=== PATIENT | male | born 1940 | race Caucasian/White ===

== ENCOUNTER 2017-10-18 04:56 | Inpatient (IN) | payer BC, OTHER ==
[2017-09-30 08:09] VITALS: BMI 29.0
--- NOTE | 2017-09-30 08:36 | PAT Medication Instructions ---
Service Date Sep 30, 2017. Current Home Medication List Amlodipine (Norvasc), 10 MG PO HS Aspirin (Aspirin Ec), 81 MG PO QAM Atenolol (Tenormin), 50 MG PO QAM Atorvastatin (Lipitor), 20 MG PO QAM Lisinopril (Zestril), 40 MG PO QAM Metformin Hcl (Glucophage Er), 2 TAB PO QAM Multivitamin (Multivitamin), 1 TAB PO QAM Ranitidine Hcl (Zantac), 150 MG PO LUNCH & HS Medication Instructions For Your Scheduled Surgery - Hold the following medications 48 hours prior to surgery: Metformin Hcl (Glucophage Er), 2 TAB PO QAM - Hold the following medications the morning of surgery: Multivitamin (Multivitamin), 1 TAB PO QAM Lisinopril (Zestril), 40 MG PO QAM - Take the following medications the morning of surgery with a sip of water: Aspirin (Aspirin Ec), 81 MG PO QAM Atenolol (Tenormin), 50 MG PO QAM Atorvastatin (Lipitor), 20 MG PO QAM - Take the following medications as scheduled the night before surgery: Ranitidine Hcl (Zantac), 150 MG PO LUNCH & HS Amlodipine (Norvasc), 10 MG PO HS If you have any questions please call us at [phone] or [phone] or [phone]
--- NOTE | 2017-09-30 09:12 | DIAGNOSTIC IMAGING REPORT ---
TWO VIEW CHEST CLINICAL HISTORY: Preoperative examination. FINDINGS: PA and lateral chest radiographs are obtained. No prior studies are available for comparison at the time of dictation. The cardiomediastinal silhouette is unremarkable. There are low lung volumes and bibasilar atelectasis. The lungs and pleural spaces are otherwise clear. There is no pneumothorax. The skeletal structures are osteopenic. Degenerative change is noted throughout the thoracic spine. IMPRESSION: Low lung volumes with no active disease in the chest. Electronically signed by: Patel Hager M.D. 09/30/2017 9:11 AM Dictated Date/Time: 09/30/2017 9:10 AM
[2017-09-30 10:37] LABS: BASO % 0.4 %; BASO ABS # 0.02 K/uL (0-0.2); COMPLETE YES; EOS % 2.2 %; HEMATOCRIT 43.2 % (42-52); IG% 0.2 %; LYMPH % 30.6 %; MEAN CELL VOLUME 90.8 fL (80-100); MEAN CORPUSCULAR HEMOGLOBIN 32.1 pg (25-34); MEAN CORPUSCULAR HGB CONC 35.4 g/dl (32-36); MEAN PLATELET VOLUME 11.8 fL (7.4-10.4); MONO % 8.5 %; NEUT % 58.1 %; PLATELET COUNT 146 K/uL (130-400); RED BLOOD COUNT 4.76 M/uL (4.7-6.1); WHITE BLOOD COUNT 4.57 K/uL (4.8-10.8)
[2017-09-30 10:44] LABS: PROTHROMBIN TIME (PATIENT) 10.7 SECONDS (9.0-12.0)
[2017-09-30 10:55] LABS: ESTIMATED AVERAGE GLUCOSE 114 mg/dl; HA1C FLAG Normal (Normal)
[2017-09-30 11:17] LABS: CALCIUM 9.5 mg/dl (8.5-10.1); POTASSIUM 4.5 mmol/L (3.5-5.1)
--- NOTE | 2017-10-12 09:42 | HISTORY & PHYSICAL EXAMINATION ---
DATE OF ADMISSION: 10/18/2017 CHIEF COMPLAINT: Left hip pain. HISTORY OF PRESENT ILLNESS: The patient is a 77-year-old gentleman who presents for treatment of his left hip. He has about a year and half history of left hip pain and discomfort, gradually gotten worse over time. No particular injury. He has taken some Aleve, which take the edge off but that is about it. He describes mostly groin pain. He has been less able to walk due to the pain. He used to walk several miles a day, but cannot do this anymore due to his hip pain. His groin pain, thigh pain and pain to his knee. No numbness. No back problems. He does have nighttime discomfort. PAST MEDICAL HISTORY: 1. Diabetes x1 year. 2. Hypertension. PAST SURGICAL HISTORY: Include knee surgery. ALLERGIES: VIOXX AND PENICILLIN. CURRENT MEDICINES: 1. Metformin 750 mg twice a day. 2. Atenolol 50 mg. 3. Lisinopril once a day. 4. Atorvastatin 20 mg. 5. Ranitidine 300 mg twice a day. 6. Amlodipine 10 mg. 7. Aspirin 81 mg. 8. Centrum Silver. SOCIAL HISTORY: A 77-year-old male. He is . [place]. Does not smoke. FAMILY HISTORY: Negative for heart disease, diabetes, and blood clots. REVIEW OF SYSTEMS: Significant for recent diagnosis of diabetes about a year ago. It has been diet controlled up till then. Denies any chest pain or shortness of breath. No history of DVT or PE. No known bleeding problems. PHYSICAL EXAMINATION: GENERAL: Reveals a pleasant, healthy appearing 77-year-old male. HEENT: Benign. NECK: Supple. No lymphadenopathy. LUNGS: Clear to auscultation. HEART: Regular rate and rhythm. ABDOMEN: Soft, nontender, nondistended. EXTREMITIES: Grossly neurovascularly intact except as follows: Examination of the left hip and leg reveals the patient walks with a bit of a limp. Leg lengths clinically appear pretty equal. He has limited hip motion with pain with internal rotation. This recreates his pain. Negative straight leg raise. No knee effusion. X-RAYS: X-rays of the left hip were reviewed. It shows advanced left hip DJD. He has got complete loss of his superior joint space. ASSESSMENT: A 77-year-old male with advanced left hip degenerative joint disease. He has failed conservative treatment and would like to have his left hip replaced. PLAN: We will take him to the operating room and do a left total hip replacement. The risks and benefits of this procedure were explained to the patient including but not limited to DVT, PE, , infection, neurological injury, vascular injury, bleeding problem, pain, limited range of motion, stiffness, failure to relieve the symptoms, incomplete relief of symptoms, persistent pain, dislocation, fracture, etc. The patient understands and desires to proceed. Informed consent was obtained. The patient is hoping to be discharged to home using an [facility] home health program. He does have a fairly wide open canal with a bit of a bow and will have to be careful in placing the stem and may actually need to cement the stem if we cannot get an uncemented stem to work. He is quite concerned about pain medicines. Will try and manage his pain with Tylenol, Toradol and some tramadol. We did talk to him about holding his metformin 2 days preoperatively and the lisinopril the morning of surgery. He should take the atenolol the morning of surgery. BENNETT
[~2017-10-18] VITALS: Ht 172.7 cm; Wt 87.7 kg
[~2017-10-18 04:56] MED LIST: AMLO-114 PO; ASPI81TA28 PO; ATEN50TA8 PO; ATOR-22 PO; LISI40TA PO; METF750T PO; MULT-506 PO; RANI150T3 PO
[2017-10-18 05:43] VITALS: BP 164/85; PULSE 58; TEMP 36.7; O2SAT 94; Ht 172.7 cm; Wt 87.7 kg
[2017-10-18] MEDS ORDERED: LACTATED RINGER'S 1000ML 500 ML IV ONE (06:00)
[2017-10-18] MEDS ORDERED: TRANEXAMIC ACID INJ 1,000 MG in SYRINGE 0 ML IV SCH (06:00)
[2017-10-18] MEDS ORDERED: SCOPOLAMINE 1.5 MG TDSY TD SCH (06:00)
[2017-10-18] MEDS ORDERED: LACTATED RINGER'S 1000ML IV SCH (06:00)
[2017-10-18] MEDS ORDERED: LACTATED RINGER'S 1000ML 1,000 ML IV SCH (06:00)
[2017-10-18] MEDS ORDERED: CEFAZOLIN 2000MG IV PUSH 10 ML IV SCH (06:00)
[2017-10-18] MEDS ORDERED: TRAMADOL HCL 50 MG TAB PO SCH (06:00)
[2017-10-18] MEDS ORDERED: ACETAMINOPHEN 500 MG TAB PO SCH (06:00)
[2017-10-18] MEDS ORDERED: METOCLOPRAMIDE HCL 10 MG TAB PO SCH (06:00)
[2017-10-18] MEDS ORDERED: GABAPENTIN 300 MG CAP PO SCH (06:00)
[2017-10-18] MEDS ORDERED: FAMOTIDINE 20 MG TAB PO SCH (06:00)
[2017-10-18] MEDS ORDERED: BUPIVACAINE 0.5 % 5 MG/1 ML PF 10ML VIAL ONE (06:32)
[2017-10-18] MEDS ORDERED: BUPIVACAINE/EPINEPHRINE 0.5% MPF 1:200,000 30 ML VIAL ONE (06:34)
[2017-10-18] MEDS ORDERED: BACITRACIN 50000 UNIT VIAL ONE (06:34)
--- NOTE | 2017-10-18 06:38 | History & Physical Bridge Note ---
H&P Re-Evaluation Bridge Note: I have examined the patient, reviewed the History & Physical and in the interval since the performance of the History & Physical I have noted the following changes of clinical significance: No changes noted
[2017-10-18] MEDS ORDERED: MIDAZOLAM HCL 1 MG/ML 2ML VIAL ONE (06:39)
[2017-10-18] MEDS ORDERED: LIDOCAINE HCL 2% 2 ML VIAL (20MG/ML) ONE (07:43)
[2017-10-18] MEDS ORDERED: PROPOFOL IV EMULSION 10 MG/ML 20 ML VIAL IV ONE (07:43)
[2017-10-18] MEDS ORDERED: NALOXONE HCL INJ 1 MG in SODIUM CHLORIDE 0.9% 1000ML 1,000 ML IV PRN ×4 (07:56)
[2017-10-18] MEDS ORDERED: NALOXONE HCL INJ 0.08 MG in SYRINGE 1.8 ML IV PRN (07:56)
[2017-10-18] MEDS ORDERED: LACTATED RINGER'S 1000ML 500 ML IV PRN (07:56)
[2017-10-18] MEDS ORDERED: SODIUM CHLORIDE 0.9% 1000ML 1,000 ML IV PRN (07:56)
[2017-10-18] MEDS ORDERED: NALOXONE HCL 0.4 MG/1 ML VIAL/CARP IV PRN (08:00)
[2017-10-18] MEDS ORDERED: PROMETHAZINE HCL INJ 25 MG in SODIUM CHLORIDE 0.9% 50ML 50 ML IV PRN (08:00)
[2017-10-18] MEDS ORDERED: MoRPHine SULFATE PF 1 MG/ML 10 ML AMP/VIAL EPI PRN (08:00)
[2017-10-18] MEDS ORDERED: ONDANSETRON INJ 2 MG/ML 2 ML VIAL IV PRN ×2 (08:00→08:30)
[2017-10-18] MEDS ORDERED: EpHEDrine SULFATE INJ 50 MG/ML AMP IV PRN (08:00)
[2017-10-18] MEDS ORDERED: NALBUPHINE HCL INJ 10 MG/ML AMP IV PRN (08:00)
[2017-10-18] MEDS ORDERED: NO NARCOTICS OR SEDATIVES SCH (08:00)
--- NOTE | 2017-10-18 08:25 | [facility] Post Operative Brief Note ---
Immediate Operative Summary Operative Date Oct 18, 2017. Pre-Operative Diagnosis Advanced Left Hip Degenerative Joint Disease Post-Operative Diagnosis Advanced Left Hip Degenerative Joint Disease Procedure(s) Performed Left Total Hip Arthroplasty--Uncemented Surgeon Dr. Elizabeth Cattle Care Worker Surgeon(s) GUSTAVO Dey Estimated Blood Loss 200 ml Findings Left Hip DJD Specimens A. Left Femoral Head Drains None Anesthesia Spinal Complication(s) None Disposition Recovery Room / PACU
[2017-10-18] MEDS ORDERED: MAGNESIUM HYDROXIDE SUSP 30 ML UDC PO PRN (08:30)
[2017-10-18] MEDS ORDERED: ALUMINUM/MAGNESIUM/SIMETH (MAALOX MAX) 30 ML UDC PO PRN (08:30)
[2017-10-18] MEDS ORDERED: SILVER SULFADIAZINE 1% CR 50 GM JAR EXT PRN (08:30)
[2017-10-18] MEDS ORDERED: METOCLOPRAMIDE HCL INJ 5 MG/ML 2 ML VIAL IV PRN (08:30)
[2017-10-18] MEDS ORDERED: TAMSULOSIN HCL 0.4 MG CAP PO PRN (08:30)
[2017-10-18] MEDS ORDERED: BISACODYL 10 MG SUPP PR PRN (08:30)
[2017-10-18] MEDS ORDERED: MULTIVITAMIN TAB PO SCH (09:00)
--- NOTE | 2017-10-18 09:14 | OPERATIVE REPORT ---
DATE OF OPERATION: 10/18/2017 SURGEON: Dr. Syd Elizabeth. VOCATIONAL EDUCATION PROFESSIONAL: GUSTAVO Lawson PREOPERATIVE DIAGNOSIS: Left hip degenerative joint disease. POSTOPERATIVE DIAGNOSIS: Same. PROCEDURE PERFORMED: Left ceramic on highly cross-linked polyethylene uncemented total hip arthroplasty. COMPLICATIONS: None. ESTIMATED BLOOD LOSS: 200 mL FLUID REPLACEMENT: 1200 mL crystalloid fluid replacement. ANESTHESIA: Spinal. DRAINS: None. SPECIMENS: Left femoral head sent for pathology. OPERATIVE INDICATIONS: The patient is a 77-year-old gentleman who has had a several-year history of increasing left hip pain and discomfort, gotten significantly worse over the past year. He has been unable to walk and exercise like he would like due to this hip pain. He failed conservative treatment. X-rays reveal advanced left hip DJD. The patient elected to proceed with operative treatment. OPERATIVE FINDINGS: Operative findings revealed advanced left hip DJD. Extensive grade 4 changes of the femoral head and acetabulum. Moderate-sized joint effusion. Some moderate synovitis. Fairly minimal osteophyte formation. OPERATIVE IMPLANTS: Operative implants consist of: 1. Biomet G7 size 56 mm acetabular shell. 2. A 6.5 cancellous acetabular screws, one of 35 mm in length and one of 25 mm in length. 3. An apex hole eliminator. 4. A highly cross-linked polyethylene liner with a 56 mm outer diameter, 36 mm inner diameter. 5. DePuy Corail size 14 standard offset femoral stem with POWER coating. 6. A +5/36 mm ceramic articular ball. OPERATIVE PROCEDURE: The patient taken to the operating room, identified and placed on the operating table in supine position. All contact areas were appropriately padded. IV antibiotics were provided by anesthesia team. A spinal anesthetic had been implemented in the holding area. Duke catheter was placed in sterile fashion. The patient was then placed in the right lateral decubitus position. An axillary roll was placed. A Stulberg hip positioner was used for positioning. The left hip and leg were then prepped and draped in the usual sterile fashion. A posterolateral approach to the hip was then performed centered over the greater trochanter. Sharp dissection was carried out through the subcutaneous tissues down to the level of the greater trochanter. The IT band and gluteal fascia were incised longitudinally in line with skin incision. The underlying greater trochanteric bursa was excised. The piriformis and external rotators were taken off the posterior aspect of the hip joint. Great care was taken throughout the procedure to protect the sciatic nerve at all times. Posterior capsulotomy was then performed leaving a large flap for later repair. Hip was internally rotated and dislocated. Femoral neck osteotomy cut was made with the final cut about a cm above the lesser trochanter. Femoral head was removed and sent for pathology. The femur was retracted anteriorly. Attention was then drawn to the acetabulum. The acetabular labrum was excised. The pulvinar fat was excised. Sequential reaming of the acetabulum was then performed beginning with a size 43 and progressing up to 55. A 56-mm Biomet G7 acetabular shell was then placed in about 40 degrees of lateral opening and 20 degrees of anteversion. It was fixed with two 6.5 cancellous acetabular screws. A trial liner was placed. Attention was then drawn to the femur. The proximal femur was entered with a [employer] cutter followed by a canal finder. I then broached sequentially with the Corail broaches. We got excellent fit of the size 14. Calcar reamer was used to smoothen off the calcar. We then trialed the hip and +5/36 mm articular ball provided equal leg lengths, appropriate soft tissue tension, and full stability with the hip in extension and full external rotation and flexion to 90 degrees, internal rotation over [address] We elected to place these implants. All trial implants were removed. An apex hole eliminator was placed. A highly cross-linked polyethylene liner was placed. A size 14 standard offset POWER coated Corail stem was then impacted in position. This was a collar device. A +5/36 mm ceramic articular ball was placed. Hip was located and once again found to be stable. Attention was then drawn toward closing. The wound was irrigated with copious amounts of pulsatile lavage solution. I did inject locally with 60 mL of 0.5% Marcaine with epinephrine. The posterior capsule and external rotators were repaired through drill holes in the posterior trochanter with #2 Ti-Cron suture. The IT band and gluteal fascia were then closed with #1 PDS suture in running fashion. The subcutaneous tissues were then closed in 2 layers, the deep layer with #1 Vicryl suture and subcutaneous tissues with 2-0 Dexon suture in a buried interrupted fashion. Skin was closed with skin jose luis. Leg was then cleaned and dried and a sterile dressing of Xeroform, 4 x 4's, sterile ABD pad and foam tape was applied. The patient then transferred to the recovery room in stable condition. The patient tolerated the procedure well with no complications. All needle and sponge counts were correct at the end of the operation. I attest to the content of the Intraoperative Record and any orders documented therein. Any exception s are noted below.
--- NOTE | 2017-10-18 09:21 | DIAGNOSTIC IMAGING REPORT ---
L PELVIS/UNILATERAL HIP 1 VIEW CLINICAL HISTORY: IN PACU - A/P PELVIS and LATERAL HIP INCLUDING ALL OF IMPLANT hip replacement COMPARISON: None. DISCUSSION: Evidence for a total left hip arthroplasty. Good contact between prosthetic and underlying bone. No evidence for acetabular protrusion. Expected soft tissue postoperative change. IMPRESSION: Total left hip arthroplasty aligned anatomically. The above report was generated using voice recognition software. It may contain grammatical, syntax or spelling errors. Electronically signed by: Isac Bradshaw M.D. 10/18/2017 9:20 AM Dictated Date/Time: 10/18/2017 9:19 AM
[2017-10-18] MEDS ORDERED: GLUCOSE 10 TABS/TUBE PO PRN (10:45)
[2017-10-18] MEDS ORDERED: GLUCAGON FOR INJ 1 MG VIAL SQ PRN (10:45)
[2017-10-18] MEDS ORDERED: DEXTROSE 50% 50 ML SYR IV PRN (10:45)
[2017-10-18] MEDS ORDERED: GLUCOSE 40% GEL 15 GM TUBE PO PRN (10:45)
--- NOTE | 2017-10-18 11:52 | Anesthesiology Progress Note ---
Anesthesia Post Op Note Date & Time Oct 18, 2017 at 11:48 Vital Signs Pain Intensity: 0 Vital Signs Past 12 Hours Date Time Temp Pulse Resp B/P (MAP) Pulse Ox O2 Delivery O2 Flow Rate FiO2 10/18/17 10:59 52 15 92 10/18/17 10:59 50 15 10/18/17 10:54 56 12 10/18/17 10:54 52 12 96 10/18/17 10:49 54 13 10/18/17 10:49 52 13 94 10/18/17 10:46 121/78 10/18/17 10:44 51 12 10/18/17 10:44 52 12 95 10/18/17 10:39 57 19 97 10/18/17 10:39 55 19 10/18/17 10:34 49 13 94 10/18/17 10:34 51 13 10/18/17 10:33 58 24 10/18/17 10:33 60 24 94 10/18/17 10:31 115/75 10/18/17 10:28 54 16 10/18/17 10:28 53 16 93 10/18/17 10:23 50 14 10/18/17 10:23 47 14 96 10/18/17 10:21 130/59 10/18/17 10:18 55 24 10/18/17 10:18 55 24 94 10/18/17 10:16 100/84 10/18/17 10:13 56 18 94 10/18/17 10:13 57 18 10/18/17 10:10 110/51 10/18/17 10:10 110/63 10/18/17 10:08 54 15 10/18/17 10:08 53 15 93 10/18/17 10:03 60 19 10/18/17 10:03 60 19 95 10/18/17 10:01 106/70 10/18/17 09:58 50 12 96 10/18/17 09:58 52 12 10/18/17 09:57 56 14 108/59 93 10/18/17 09:57 49 14 10/18/17 09:53 112/75 10/18/17 09:52 39 18 10/18/17 09:52 39 18 97 10/18/17 09:51 78/57 10/18/17 09:47 47 4 10/18/17 09:47 45 4 97 12/8/17 09:46 111/76 8/17 09:42 47 12 95 17 09:42 42 12 17 09:41 113/67 17 09:37 41 16 98 17 09:37 46 16 17 09:36 122/61 8/17 09:32 56 16 94 17 09:32 57 16 17 09:31 107/61 17 09:28 37.2 817 09:27 59 15 112/50 95 17 09:27 51 15 17 09:22 63 14 17 09:22 63 14 93 10/18/17 09:21 63 16 17 09:21 62 16 106/57 92 10/18/17 09:16 50 14 97 10/18/17 09:16 52 14 10/18/17 09:15 117/65 10/18/17 09:11 63 16 10/18/17 09:11 68 16 109/59 94 10/18/17 09:06 57 16 97 10/18/17 09:06 60 16 10/18/17 09:05 119/61 17 09:01 53 13 10/18/17 09:01 57 13 115/62 94 10/18/17 09:00 55 13 10/18/17 09:00 51 13 94 10/18/17 08:56 117/62 10/18/17 08:55 57 16 94 10/18/17 08:55 63 16 10/18/17 08:51 109/76 17 08:50 62 20 96 17 08:50 62 20 17 08:46 119/59 17 08:45 53 13 99 17 08:45 56 13 17 08:44 54 16 17 08:44 50 16 99 17 08:41 120/64 17 08:39 50 13 98 17 08:39 54 13 17 08:36 115/66 17 08:34 64 17 17 08:34 59 17 98 10/18/17 08:32 123/61 10/18/17 08:29 67 18 10/18/17 08:29 67 18 98 10/18/17 08:25 108/60 10/18/17 08:25 107/63 10/18/17 08:24 72 10/18/17 08:24 37.1 66 15 108/60 96 Oxymask 10 10/18/17 08:24 72 94 10/18/17 05:43 36.7 58 18 164/85 94 Room Air Notes Mental Status: alert / awake / arousable, participated in evaluation Pt Amnestic to Procedure: Yes Nausea / Vomiting: adequately controlled Pain: adequately controlled Airway Patency, RR, SpO2: stable & adequate BP & HR: stable & adequate Hydration State: stable & adequate Neuraxial Anesthesia: was administered, sensory block is resolving Anesthetic Complications: no major complications apparent Pt presented w/ baseline EKG first degree av block.Pt went into 2nd degree AV Block in PACU.Dr Taylor called since pt sees PCP w/ Nicole.Pt is H/D stable.Discussed w/Dr Taylor,and he will see pt.Pt is being transferred to telemetry bed.
[2017-10-18 12:16] VITALS: BP 125/66; PULSE 70; TEMP 36.6; O2SAT 97
[2017-10-18] MEDS: SODIUM CHLORIDE 0.9% 1000ML 1,000 ML IV SCH ×2 (12:51→22:11)
[2017-10-18] MEDS: LISINOPRIL 40 MG TAB PO SCH (13:33)
[2017-10-18] MEDS: ACETAMINOPHEN 500 MG TAB PO SCH ×2 (13:33→22:09)
[2017-10-18] MEDS: MULTIVITAMIN TAB PO SCH (13:37)
[2017-10-18] MEDS: RANITIDINE HCL 150 MG TAB PO SCH (13:37)
[2017-10-18 13:39] VITALS: BP 137/69
[2017-10-18] MEDS ORDERED: TRANEXAMIC ACID INJ 1,000 MG in SODIUM CHLORIDE 0.9% 100ML 100 ML IV ONE (14:30)
[2017-10-18] MEDS: KETOROLAC TROMETHAMINE 15 MG/ML VIAL IV. SCH ×2 (14:33→20:56)
[2017-10-18] MEDS: DiphenhydrAMINE HCL 50 MG/ML VIAL IV PRN ×2 (14:38→23:01)
--- NOTE | 2017-10-18 14:56 | CARDIOLOGY CONSULTATION ---
DATE OF CONSULTATION: 10/18/2017 DATE OF CONSULTATION: 10/18/2017 REFERRING PHYSICIAN: Dr. Elizabeth. REASON FOR CONSULTATION: Second degree AV block, Mobitz type 1. HISTORY OF PRESENT ILLNESS: Mr. Frausto a 77-year-old gentleman with history of type 2 diabetes. Presented for elective left-sided hip replacement. Postoperatively, he was noted to develop second-degree AV block, Mobitz type 1 with a ventricular rate of approximately 45 beats per minute. No symptoms or hypotension reported. I was contacted by the anesthesia service for consultation. The patient was seen and examined at the bedside. Resting comfortably. and daughter are present as well. The patient denies history of lightheadedness, dizziness, syncope, near syncope, or bradycardia. Denies personal history of coronary disease, congestive heart failure, rheumatic fever as a child, peripheral vascular disease, or dysrhythmia. In general, he is an active person. Most recently limited by his left hip discomfort. Reports family history of coronary disease in elderly relatives. The patient offers no complaints at this time. REVIEW OF SYSTEMS: The pertinent positives noted above, a comprehensive 10-system review is otherwise negative. PAST MEDICAL HISTORY: 1. Diabetes type 2. 2. Dyslipidemia. 3. Skin neoplasm. 4. Hypertension. PAST SURGICAL HISTORY: Knee surgery. ALLERGIES: VIOXX AND PENICILLIN. CURRENT OUTPATIENT MEDICATIONS: 1. Metformin 750 mg 2 tablets in the morning. 2. Atenolol 50 mg daily. 3. Lipitor 20 mg daily. 4. Lisinopril 40 mg daily. 5. Amlodipine 10 mg daily. 6. Zantac 150 mg twice daily. 7. Aspirin 81 mg daily. SOCIAL HISTORY: Lifelong nonsmoker. He is and lives with his . FAMILY HISTORY: Negative for premature CAD or sudden cardiac . ECG performed under observation in the PACU demonstrates sinus rhythm with a second degree AV block, Mobitz type 1 and possible age indeterminate inferior infarct. Previous ECG performed on 09/30/2017 demonstrated sinus rhythm with possible age indeterminate inferior infarct. LABORATORY DATA: Dated 09/30/2017, white blood cell count 4.57, hemoglobin is 15.3, platelet count is 146. INR is 1.0. Sodium 140, potassium 4, chloride 105, CO2 28, BUN is 14, creatinine is 1.00. Telemetry currently demonstrates sinus rhythm with a first degree AV block and a heart rate of approximately 70-80 beats per minute. PHYSICAL EXAMINATION: VITAL SIGNS: Temperature afebrile, 36.6 degrees centigrade, heart rate 70 beats per minute, respiratory rate 16 breaths per minute, blood pressure 137/69, SaO2 97% on 2 liters. GENERAL: NAD, awake and alert. THROAT: His mucous membranes are moist. No scleral icterus. Conjunctivae pink. NECK: Supple. There is no JVD, no HJR. No carotid bruit. HEART: Regular with a normal S1 and S2. There is no murmur, rub or gallop. LUNGS: Clear. There are no rales, rhonchi or wheeze. ABDOMEN: Soft, nontender. There is no rebound or guarding. Normal bowel sounds. EXTREMITIES: Demonstrate left-sided hip tenderness. There is no edema. NEUROLOGIC: Demonstrates no focal deficit. FINAL IMPRESSION: 1. A 77-year-old male with transient second-degree AV block, Mobitz type 1 noted postoperatively. He has a long first-degree AV block at baseline. The patient has returned to sinus rhythm with first degree AV block and remains asymptomatic. 2. Diabetes type 2. 3. Hypertension -- controlled. 4. Dyslipidemia. 5. Postoperative day 0 left hip replacement. PLAN AND RECOMMENDATIONS: I will repeat baseline metabolic panel, magnesium level, as well as assess TSH at this time. A baseline resting 2D transthoracic echo will also be performed given evidence of possible age indeterminate inferior infarct on ECG. We will continue to monitor telemetry overnight. If there is presence of nocturnal second degree AV block during sleep consider evaluation for obstructive sleep apnea. Atenolol will be placed on hold. I recommend avoid AV brady blocking agents at this time. Further recommendations pending clinical course, review of testing, and response to medication change.
[2017-10-18 15:01] LABS: BUN/CREATININE RATIO 13.4 (10-20); CALCIUM 8.2 mg/dl (8.5-10.1); CREATININE 1.08 mg/dl (0.60-1.40); MAGNESIUM 1.9 mg/dl (1.8-2.4); POTASSIUM 3.5 mmol/L (3.5-5.1)
[2017-10-18 15:12] LABS: THYROID STIMULATING HORMONE 5.73 uIu/ml (0.300-4.500)
[2017-10-18 15:25] LABS: LYME DISEASE AB IGG NEG (NEG)
[2017-10-18 15:26] LABS: LYME DISEASE AB IGM NEG (NEG)
[2017-10-18] MEDS: CEFAZOLIN IV 2,000 MG in SYRINGE 0 ML IV SCH ×2 (16:06→23:01)
[2017-10-18] MEDS: CHECK SCOPOLAMINE PATCH PLACEMENT SCH (16:07)
[2017-10-18 16:14] VITALS: BP 121/61; PULSE 66; TEMP 37; O2SAT 92
[2017-10-18] MEDS: INSULIN HUMAN REGULAR SC SCH ×2 (16:15→22:08)
[2017-10-18] MEDS: FERROUS GLUCONATE 324 MG TAB PO SCH (16:45)
--- NOTE | 2017-10-18 17:01 | ECHOCARDIOGRAM REPORT ---
*NOTICE TO RECEIVING [employer] This information is strictly Confidential and protected under [place] law. [place] law prohibits you from making any further disclosure of this information unless further disclosure is expressly permitted by the written consent of the person to whom it pertains or is authorized by law. A general authorization for the release of medical or other information is not sufficient for this purpose. Hospital accepts no responsibility if the information is made available to any other person, INCLUDING THE PATIENT. Interpretation Summary * Name: ERICA LANGSTON Study Date: 10/18/2017 03:12 PM BP: 137/69 mmHg * Patient Location: C.2T\S\E218\S\1 HR: 73 * : 1940 (M/d/yyyy) Gender: Male Height: 68 in * Age: 77 yrs Ethnicity: [place] Weight: 192 lb * Ordering Physician: Gaurang Ortega * Referring Physician: Syd Elizabeth * Performed By: Harsha Bryan RCS * * Reason For Study: Heart Block, Possible Inferior Infarct on ECG * BSA: 2.0 m2 * The study was technically difficult. * There is no comparison study available. * -- Conclusions -- * Left ventricular systolic function is normal. * Ejection Fraction = 60-65%. * The basal septum is thickened and angulated consistent with sigmoid septum. * Grade I diastolic dysfunction, (abnormal relaxation pattern). * There is mild tricuspid regurgitation. * The estimated systolic PAP is 39mmHg. Procedure Details * A complete two-dimensional transthoracic echocardiogram was performed (2D, M-mode, Doppler and color flow Doppler). * There were technical limitations due to patient'spoor positioning Left Ventricle * The left ventricle is normal in size. * There is normal left ventricular wall thickness. * The basal septum is thickened and angulated consistent with sigmoid septum. * Left ventricular systolic function is normal. * Ejection Fraction = 60-65%. * No regional wall motion abnormalities noted. Right Ventricle * The right ventricle is normal size. * The right ventricular systolic function is normal as assessed by tricuspid annular plane systolic excursion (TAPSE) (normal >1.5 cm). Atria * The left atrial size is normal. * Right atrial size is normal. * There is no evidence of atrial septal defect, but resolution does not allow assessment for a patent foramen ovale. Mitral Valve * The mitral valve is normal. * There is no mitral valve stenosis. * Significant mitral regurgitation is absent. Tricuspid Valve * The tricuspid valve is normal. * There is no tricuspid stenosis. * There is mild tricuspid regurgitation. * The estimated systolic PAP is 39mmHg. Aortic Valve * The aortic valve is trileaflet. * Aortic stenosis is absent. * There is no significant aortic regurgitation. Pulmonic Valve * The pulmonary valve is not well seen, but the Doppler examination is normal without significant regurgitation or stenosis. Great Vessels * The aortic root is normal size. Pericardium/Pleural * There is no pericardial effusion. Great Vessels * IVC not well visualized. Left Ventricular Diastolic Function * Grade I diastolic dysfunction, (abnormal relaxation pattern). MMode 2D Measurements and Calculations IVSd 1.1 cm LVIDd 3.0 cm LVPWd 1.0 cm IVS/LVPW 1.1 EDV(Teich) 33.6 ml EDV(cubed) 25.7 ml LV mass(C)d 86.5 grams LV mass(C)dI 43.1 grams/m\S\2 Ao root diam 3.7 cm Ao root area 10.9 cm\S\2 ACS 2.1 cm LA dimension 4.6 cm asc Aorta Diam 3.8 cm LA/Ao 1.2 EDV(MOD-sp4) 159.2 ml ESV(MOD-sp4) 67.3 ml EF(MOD-sp4) 57.7 % EDV(MOD-sp2) 143.8 ml ESV(MOD-sp2) 70.2 ml EF(MOD-sp2) 51.2 % SV(MOD-sp4) 91.9 ml SI(MOD-sp4) 45.8 ml/m\S\2 SV(MOD-sp2) 73.6 ml SI(MOD-sp2) 36.6 ml/m\S\2 Doppler Measurements and Calculations MV E max pardeep 68.6 cm/sec MV A max pardeep 88.9 cm/sec MV E/A 0.77 MV P1/2t max pardeep 76.4 cm/sec MV P1/2t 63.8 msec MVA(P1/2t) 3.4 cm\S\2 MV dec slope 350.4 cm/sec\S\2 MV dec time 0.24 sec Ao V2 max 161.8 cm/sec Ao max PG 10.5 mmHg Ao max PG (full) 6.9 mmHg LV V1 max PG 3.6 mmHg LV V1 max 94.9 cm/sec PA V2 max 123.1 cm/sec PA max PG 6.2 mmHg TR max pardeep 247.5 cm/sec
[2017-10-18 19:16] VITALS: BP 135/76; PULSE 67; TEMP 37.4; O2SAT 92
[2017-10-18] MEDS ORDERED: ZOLPIDEM TARTRATE 5 MG TAB PO PRN (22:00)
[2017-10-18] MEDS: AMLODIPINE BESYLATE 5 MG TAB PO SCH (22:10)
[2017-10-18] MEDS: ASPIRIN 325 MG ECTAB PO SCH (22:10)
[2017-10-18] MEDS: DOCUSATE SODIUM 100 MG CAP PO SCH (22:10)
[2017-10-18] MEDS: SENNA 8.6 MG TAB PO SCH (22:15)
[2017-10-18 23:21] VITALS: BP 114/68; PULSE 65; TEMP 36.4; O2SAT 91
[2017-10-19] MEDS: SODIUM CHLORIDE 0.9% 1000ML 1,000 ML IV SCH ×2 (00:25→06:57)
[2017-10-19] MEDS ORDERED: TRAMADOL HCL 50 MG TAB PO PRN (02:00)
[2017-10-19] MEDS ORDERED: HYDROmorphone INJ 0.5 MG/0.5 ML SYR IV PRN (02:00)
[2017-10-19] MEDS ORDERED: DC INTRASPINAL MORPHINE SCH (02:00)
[2017-10-19 03:09] VITALS: BP 131/69; PULSE 70; TEMP 37.1; O2SAT 91
[2017-10-19] MEDS: KETOROLAC TROMETHAMINE 15 MG/ML VIAL IV. SCH ×4 (05:22→20:46)
[2017-10-19] MEDS: ACETAMINOPHEN 500 MG TAB PO SCH ×3 (05:28→20:48)
[2017-10-19 06:54] LABS: BASO % 0.1 %; BASO ABS # 0.01 K/uL (0-0.2); COMPLETE YES; EOS % 0.1 %; IG% 0.1 %; LYMPH ABS # 1.08 K/uL (1.2-3.4); MEAN CELL VOLUME 92.6 fL (80-100); MEAN CORPUSCULAR HEMOGLOBIN 32.8 pg (25-34); MEAN CORPUSCULAR HGB CONC 35.4 g/dl (32-36); MEAN PLATELET VOLUME 11.3 fL (7.4-10.4); MONO % 10.1 %; NEUT % 76.6 %; PLATELET COUNT 106 K/uL (130-400); RED BLOOD COUNT 3.78 M/uL (4.7-6.1); WHITE BLOOD COUNT 8.28 K/uL (4.8-10.8)
[2017-10-19] MEDS: INSULIN HUMAN REGULAR SC SCH ×4 (07:00→20:51)
[2017-10-19 07:29] LABS: BUN/CREATININE RATIO 15.5 (10-20); CREATININE 1.01 mg/dl (0.60-1.40); POTASSIUM 3.4 mmol/L (3.5-5.1)
[2017-10-19] MEDS ORDERED: POTASSIUM CHLORIDE 20 MEQ TABCR PO ONE ×3 (08:00→16:00)
--- NOTE | 2017-10-19 08:08 | PROGRESS NOTE ---
DATE: 10/19/2017 SUBJECTIVE: A 77-year-old gentleman postop day 1 from a left hip replacement. He is doing well. He was put in the PCU for some issues with respect to his heart, particularly the bradycardia postoperatively. He has had no symptoms. Denies any significant hip pain. No chest pain or shortness of breath. Not feeling dizzy or lightheaded. OBJECTIVE: VITAL SIGNS: Temperature 37.1. Vital signs stable. PHYSICAL EXAMINATION: GENERAL: Reveals a pleasant elderly male. He is sitting up in bed and looks comfortable. He is awake, alert and oriented. EXTREMITIES: Examination of left hip reveals dressing to be clean, dry and intact. The leg lengths are equal. He is neurologically intact. LABORATORY DATA: Hemoglobin 12.4. Hematocrit 35.0. Electrolytes are stable. Potassium is slightly low at 3.4. ASSESSMENT: A 77-year-old gentleman postop day 1 from left total hip replacement, doing well. They wanted to moderate him overnight due to some cardiac issues. He is completely asymptomatic. Pain is controlled. Hip is located. He is neurologically intact. PLAN: 1. DVT prophylaxis including thigh-high TEDs, SCDs, and aspirin twice a day. 2. PT/OT. He can weight bear as tolerated. Left total hip protocol. 3. Pain control, doing well with current pain regimen. We will limit narcotics to avoid confusion. 4. Medical management as per the cardiology service. 5. Disposition: He is planning to be discharged to home with some home health once adequately recovered. 6. Hypokalemia. I will supplement his potassium today and recheck it.
[2017-10-19] MEDS: RANITIDINE HCL 150 MG TAB PO SCH (08:15)
[2017-10-19] MEDS: FERROUS GLUCONATE 324 MG TAB PO SCH ×3 (08:15→17:15)
[2017-10-19] MEDS: DOCUSATE SODIUM 100 MG CAP PO SCH ×2 (08:15→18:33)
[2017-10-19] MEDS: ASPIRIN 325 MG ECTAB PO SCH ×2 (08:16→20:46)
[2017-10-19] MEDS: PANTOprazole SOD 40 MG TAB PO SCH (08:16)
[2017-10-19] MEDS: CHECK SCOPOLAMINE PATCH PLACEMENT SCH ×4 (08:17→23:55)
[2017-10-19] MEDS: ATORVASTATIN 20 MG TAB PO SCH (09:12)
[2017-10-19] MEDS: LISINOPRIL 40 MG TAB PO SCH (09:12)
[2017-10-19] MEDS: MULTIVITAMIN TAB PO SCH (09:12)
[2017-10-19 11:44] VITALS: BP 125/57; PULSE 70; TEMP 37; O2SAT 91
[2017-10-19 11:55] VITALS: BP 125/57; PULSE 66; O2SAT 97
[2017-10-19] MEDS ORDERED: LEVOTHYROXINE 25 MCG TAB PO ONE (11:56)
[2017-10-19] MEDS ORDERED: METOPROLOL SUCC 25MG EXT REL TAB PO ONE (11:56)
--- NOTE | 2017-10-19 12:10 | CARDIOLOGY PROGRESS NOTE ---
DATE: 10/19/2017 DATE: 10/19/2017 The patient seen and examined. Chart, medications, telemetry reviewed. SUBJECTIVE: The patient has no complaints this morning. Notes no dizziness or lightheadedness. Was up to physical therapy with good tolerance. Notes no chest pains or discomfort. Telemetry reveals no further bradycardia or arrhythmias. Hip incision is healing well. The patient notes no significant discomfort. OBJECTIVE: VITAL SIGNS: Heart rate 70, blood pressure is 125/57, O2 saturations 91% on 2 liters nasal cannula. NECK: Thick. There is no jugular venous distention. LUNGS: Predominantly clear to auscultation. CARDIOVASCULAR EXAMINATION: Regular. There is no S3 gallop. ABDOMEN: Soft, nontender. EXTREMITIES: Without cyanosis or clubbing. There is no significant edema. Incision is without drainage of significance. LABORATORY DATA: Sodium is 139, potassium 3.4, chloride is 108, bicarbonate 26, BUN 16, creatinine is 1.0. TSH was mildly elevated at 5.7. Hemoglobin is 12.4, hematocrit 35.0. IMPRESSION: A 77-year-old male with history of transient second degree AV block status post elective hip surgery, asymptomatic. No signs or symptoms of acute cardiac decline. Remains in sinus rhythm with first degree AV block this morning with improved heart rate. RECOMMENDATIONS: Will resume beta michael though with slightly lower dosing at 12.5 mg Toprol per day. Will supplement potassium this morning as ordered. Supplement thyroid replacement given elevated TSH. Will continue to follow patient in the hospital. Anticipate patient to progress through physical therapy as already planned.
[2017-10-19 15:46] VITALS: BP 145/67; PULSE 72; TEMP 36.4; O2SAT 90
[2017-10-19 19:59] VITALS: BP 126/68; PULSE 70; TEMP 36.4; O2SAT 90
[2017-10-19] MEDS: SENNA 8.6 MG TAB PO SCH (20:47)
[2017-10-19] MEDS: AMLODIPINE BESYLATE 5 MG TAB PO SCH (20:47)
[2017-10-19 23:59] VITALS: BP 137/70; PULSE 81; TEMP 36.8; O2SAT 91
[2017-10-20] MEDS: KETOROLAC TROMETHAMINE 15 MG/ML VIAL IV. SCH ×2 (02:00→08:05)
[2017-10-20] MEDS ORDERED: LEVOTHYROXINE 25 MCG TAB PO SCH (06:00)
[2017-10-20] MEDS: ACETAMINOPHEN 500 MG TAB PO SCH (06:05)
[2017-10-20 06:10] VITALS: BP 154/70; PULSE 88; TEMP 36.7; O2SAT 92
[2017-10-20] MEDS ORDERED: ASPEC325 PO (07:41)
[2017-10-20] MEDS ORDERED: ACET-24 PO (07:41)
[2017-10-20] MEDS ORDERED: ULT50X PO (07:41)
--- NOTE | 2017-10-20 07:43 | Discharge Instructions ---
Discharge Instructions Date of Service Oct 20, 2017. Admission Reason for Admission: Left Hip Degenerative Joint Disease Discharge Discharge Diagnosis / Problem: Left Hip Replacement Discharge Goals Goal(s): Decrease discomfort, Improve function, Increase independence, Improve disease control, Therapeutic intervention Activity Recommendations Activity Limitations: per Instructions/Follow-up section Weightbearing Status: Left weightbearing . Instructions / Follow-Up Instructions / Follow-Up ACTIVITY RECOMMENDATIONS: Physical Therapy: * Aggressive physical therapy is not usually needed. You will learn to take care of yourself safely and walk. * Follow the "Hip Precautions Instructions." * In some cases, the nephrology social worker at the hospital will arrange to have a therapist come to your house for the first couple of weeks to help you learn these skills. * You need to practice on your own or with the help of a family member as needed. * When you learn these skills, most of the therapy can be done on your own. Home Exercise: * You were shown a series of exercises in the hospital. Do these exercises three to four times each day including the exercises you were shown in physical therapy. Walking: * Get up and walk several times each day. For the first four weeks, try not to stand or walk for more than one hour at a time. If you do stand or walk for more than one hour, you will not hurt anything, but your leg will likely swell. * As you feel comfortable, you may change from the walker or crutches to a cane and then to independent walking. MEDICATIONS: New Medicine: * You will likely be taking one or more of these medicines: 1. Tramadol - Take, as directed, when you need it, every four to six hours to control your pain. 2. Aspirin - Thins your blood to lessen the chance of forming a blood clot. * The most common side effects of pain medicine and iron are nausea and constipation. If nausea or constipation is too much of a problem or if you have any questions about your new medicines or doses, call [facility] at . We will try to help you manage these issues. VERY IMPORTANT TO READ AND REVIEW" Pain: * The immediate post-operative period after hip replacement surgery is often quite painful. * You are given a prescription for pain medicine. You should take it, as directed, when you need it, especially before physical therapy and before going to bed. Pain that interferes with sleep is very common and can last several months. * You will likely need pain medicine for the first two to four weeks. It will not stop all of the pain. The pain will lessen and as you feel better, you may change to milder pain medicine such as Tylenol. * The most common side effects of pain medicine are nausea and constipation, so don't take more than you need. SPECIAL CARE INSTRUCTIONS: TEDs/Elastic Stockings: * The white elastic stockings help limit swelling and prevent blood clots from forming in your legs. The more you wear them, the more they work. * Wear them for six weeks. Prevention of Infection: * Take antibiotics one hour before any dental cleaning, dental work, urological procedure, gastrointestinal procedure or any invasive surgery in order to prevent your new joint from getting infected. * You may get the antibiotics from the doctor performing the procedure or you may call our office at before and we will call in a prescription to the pharmacy of your choice. Things to Watch For: * Drainage from the incision site that occurs more than one week after your surgery. * Severely increased leg pain or swelling. * Increased redness at the incision site. * Fever above 102 degrees Fahrenheit. * Unusual chest pain or shortness of breath. * Unusual pain or burning with urination. Call [facility] at with any of the above problems or if you have any questions about your medicines or recovery. FOLLOW UP VISIT: Make an appointment to see your doctor for approximately two weeks after surgery for a progress check and staple removal by calling the office at . Current Hospital Diet Patient's current hospital diet: Diabetes Type 2 Diet Discharge Diet Recommended Diet: Diabetes Type 2 Diet Procedures Procedures Performed: Left Total Hip Arthroplasty--Uncemented Pending Studies Studies pending at discharge: no Laboratory Results Hemoglobin A1c Test 09/30/17 08:41 Range/Units Estimated Average Glucose 114 mg/dl Hemoglobin A1c 5.6 4.5-5.6 % Medical Emergencies . Who to Call and When: Medical Emergencies: If at any time you feel your situation is an emergency, please call 911 immediately. . Non-Emergent Contact Non-Emergency issues call your: Surgeon . "Provider Documentation" section prepared by Syd Elizabeth. . VTE Core Measure Inpt VTE Proph given/why not?: Other Anticoagulation, T.E.D. Stockings, SCD's
[2017-10-20 07:53] VITALS: BP 136/61; PULSE 89; TEMP 36.8; O2SAT 92
[2017-10-20] MEDS: FERROUS GLUCONATE 324 MG TAB PO SCH ×2 (07:55→11:30)
[2017-10-20] MEDS: CHECK SCOPOLAMINE PATCH PLACEMENT SCH (07:57)
[2017-10-20] MEDS: INSULIN HUMAN REGULAR SC SCH ×2 (07:57→11:00)
[2017-10-20] MEDS: ASPIRIN 325 MG ECTAB PO SCH (07:58)
[2017-10-20] MEDS: DOCUSATE SODIUM 100 MG CAP PO SCH (07:58)
[2017-10-20] MEDS: ATORVASTATIN 20 MG TAB PO SCH (07:59)
[2017-10-20] MEDS: MULTIVITAMIN TAB PO SCH (07:59)
[2017-10-20] MEDS: PANTOprazole SOD 40 MG TAB PO SCH (07:59)
[2017-10-20] MEDS: LISINOPRIL 40 MG TAB PO SCH (08:00)
[2017-10-20] MEDS: RANITIDINE HCL 150 MG TAB PO SCH (08:00)
--- NOTE | 2017-10-20 08:02 | PROGRESS NOTE ---
DATE: 10/20/2017 SUBJECTIVE: A 77-year-old gentleman postop day #2 from a left total hip replacement. He is doing pretty well. He has had some intermittent confusion, but seems pretty awake, alert and appropriate this morning. Denies much in the way of pain. No chest pain or shortness of breath. Not feeling dizzy or lightheaded. OBJECTIVE: VITAL SIGNS: Temperature 36.7. Vital signs stable. GENERAL: Reveals a healthy, pleasant, middle-aged male. He is sitting up in bed and talking to his . He is awake, alert and appropriate and oriented. EXTREMITIES: Examination of left hip reveals the dressing to be in place. Just a little bit of bruising at the incision site. Hip is located. NEUROLOGICAL: He is neurologically intact. LABORATORY DATA: Electrolytes: Potassium improved at 12.0. Blood glucose is stable in low 100s. ASSESSMENT: A 77-year-old gentleman postop day #2 from a left total hip replacement, doing pretty well. He has had a little bit of confusion, but seems to be better. His hip is located. He is neurologically intact. PLAN: 1. DVT prophylaxis including thigh-high TEDs, SCDs, and aspirin twice a day. 2. PT/OT. Weightbearing as tolerated. Left total hip protocol. 3. Pain control, doing pretty well with current pain regimen. We are going to stick to Tylenol to avoid confusion. 4. Cardiac issues. He has been followed by cardiology. Cardiac issues appeared to be stable at this time. 5. Disposition: Plan to discharge to home with some home health once acceptable with cardiology.
[2017-10-20] MEDS ORDERED: METOPROLOL SUCC 25MG EXT REL TAB PO SCH (09:00)
[2017-10-20 13:23] VITALS: BP 136/61; PULSE 89; TEMP 36.8; O2SAT 92
--- NOTE | 2017-10-20 16:59 | CARDIOLOGY PROGRESS NOTE ---
DATE: 10/20/2017 CARDIOLOGY CONSULTATION FOLLOWUP NOTE The patient seen and examined. Chart, medications, telemetry reviewed. SUBJECTIVE: The patient had no difficulties overnight, only a transient Wenckebach one time. Notes no further bradyarrhythmias. Notes no dizziness or lightheadedness. Blood pressure is controlled. OBJECTIVE: VITAL SIGNS: Heart rate is 85, blood pressure is 136/61. NECK: Thick. There is no distinct jugular venous distention. LUNGS: Clear. CARDIOVASCULAR: S1 and S2 regular. There is no S3 gallop. ABDOMEN: Soft, nontender. EXTREMITIES: Notable for healing left hip incision. No cord or Homans sign. IMPRESSION: A 77-year-old male evaluated for transient second-degree arteriovenous block, post left hip replacement. Medications were notably adjusted, atenolol discontinued, and the patient begun on lower dose beta michael with Toprol-XL 12.5 mg per day. Prescription was provided for change in medical therapy. The patient will follow up with primary care physician.
== END 2017-10-20 15:06 | disposition home health service (06) | DRG 470 ==
LOC: C.ACU 04:56 → C.2T 06:30 → CANBEDREQ 09:23 → ENRESERV 11:36
PROVIDERS: ADMIT Orthopaedic Surgery Sports Medicine; ATTEND Orthopaedic Surgery Sports Medicine
PROC: 0SRB04Z Replacement of Left Hip Joint with Ceramic on Polyethylene Synthetic Substitute, Open Approach (ICD-10-PCS; principal; 2017-10-18 07:00)
DX: M16.12 Unilateral primary osteoarthritis, left hip (principal); M25.452 Effusion, left hip; M65.9 Synovitis and tenosynovitis, unspecified; I44.1 Atrioventricular block, second degree; I44.0 Atrioventricular block, first degree; E87.6 Hypokalemia; R41.0 Disorientation, unspecified; I10 Essential (primary) hypertension; E11.9 Type 2 diabetes mellitus without complications; E78.5 Hyperlipidemia, unspecified; K21.9 Gastro-esophageal reflux disease without esophagitis; Z87.891 Personal history of nicotine dependence; Z79.82 Long term (current) use of aspirin; Z79.84 Long term (current) use of oral hypoglycemic drugs; Z79.899 Other long term (current) drug therapy

== ENCOUNTER 2019-04-22 05:09 | Inpatient (IN) ==
--- NOTE | 2019-04-02 17:30 | PAT Medication Instructions ---
Medication Instructions Date of Service April 02, 2019 Home Medications amlodipine 10 mg PO HS aspirin [Aspirin Low Dose] 81 mg PO QAM atorvastatin 20 mg PO QAM lisinopril 40 mg PO QAM metformin 1,500 mg PO QAM metoprolol succinate 25 mg PO QAM bpqvebhm-ech-VA-lycopen-lutein [Centrum Silver] 1 tab PO DAILY ranitidine HCl 150 mg PO HS ranitidine HCl 150 mg PO QDL DO NOT take the morning of surgery lisinopril 40 mg PO QAM metformin 1,500 mg PO QAM multivit-[Centrum Silver] 1 tab PO DAILY Take morning of surgery With a small sip of water, OTHERWISE NOTHING TO EAT OR DRINK AFTER MIDNIGHT: aspirin [Aspirin Low Dose] 81 mg PO QAM atorvastatin 20 mg PO QAM metoprolol succinate 25 mg PO QAM ranitidine HCl 150 mg PO QDL Take evening before surgery amlodipine 10 mg PO HS ranitidine HCl 150 mg PO HS Other Notes If you have any questions please call us at [phone] or [phone] or [phone] or [phone]
--- NOTE | 2019-04-03 14:47 | Anesthesiology Consultation ---
Date of Service April 03, 2019 Assessment & Plan (1) Encounter for pre-operative examination: CHECK BSG STAT AM DOS Chart Review Chart Review: Acceptable Risk for Surgery and Patient seen in Pre Admission Testing Teaching & Discussion Instructed NPO after midnight before surgery, except medications with 15 cc of water. Medication instructions provided according to the PAT guidelines. History Surgery Operation Date: 04/22/19 12:45 Proposed Procedures p Right Total Hip Replacement - Syd Elizabeth MD Height/Weight Height: 5 ft 6 in Weight: 87.8 kg Allergies Allergy/AdvReac Type Severity Reaction Status Date / Time Penicillins Allergy Intermediate HIVES Verified 04/02/19 07:07 rofecoxib Allergy Intermediate RASH Verified 04/02/19 07:07 Medications Home Medications Medication Instructions Recorded Confirmed Last Taken amlodipine 10 mg PO HS 04/02/19 04/02/19 Unknown aspirin [Aspirin Low Dose] 81 mg PO QAM 04/02/19 04/02/19 Unknown atorvastatin 20 mg PO QAM 04/02/19 04/02/19 Unknown lisinopril 40 mg PO QAM 04/02/19 04/02/19 Unknown metformin 1,500 mg PO QAM 04/02/19 04/02/19 Unknown metoprolol succinate 25 mg PO QAM 04/02/19 04/02/19 Unknown hsehujie-obd-OX-lycopen-lutein 1 tab PO DAILY 04/02/19 04/02/19 Unknown [Centrum Silver] ranitidine HCl 150 mg PO HS 04/02/19 04/02/19 Unknown ranitidine HCl 150 mg PO QDL 04/02/19 04/02/19 Unknown Past Medical History Medical History Diabetes mellitus, type 2 NIDDM GERD (gastroesophageal reflux disease) Hearing deficit BILATERAL HEARING AIDS Hyperlipidemia Hypertension Osteoarthritis Exercise / Class Metabolic Activity II 4-5 Yardwork/Stairs/Walk up hill (Denies CP or SOB with lawn mowing, gardening, stairs) Past Family History Family History Mother Family history of diabetes mellitus Past Surgical History Surgical History History of colonoscopy History of total hip arthroplasty LEFT Past Anesthesia History No Family Hx of Anesthesia Complications Possible prolonged delerium after colonoscopy...pt reports he doesnt remember anything for two days afterward. GER 10/2017 [facility] without issues History of PONV No Hx of Motion Sickness and History of PONV Social History Smoking Status: Former smoker tobacco type: cigarettes and smokeless tobacco Do You Dip or Chew Tobacco: Yes (1 CAN/2 DAYS (ADVISED)) Smoking End Date: QUIT 50 YEARS AGO Hx Alcohol Use: Yes Alcohol type: beer alcohol intake frequency: 3 or more drinks per day (2-4) Hx Substance Use: No substance use type: does not use Review of Systems Pt denies any recent chest pain, shortness of breath, palpitations, cough, fever or URI. Physical Exam Vital Signs BP: 128/76 P: 72bpm SPO2: 93% RA T: 98.4 F R: 16 ENMT Mouth: + dentures (partial lower) and + chipped teeth (one broken canine upper L); no dental restorations and no loose teeth Thyromental Distance: > or= 3.5 Finger Breadths (3.5) Mallampati Class: I Neck normal visual inspection and + facial hair (thin mustache); neck extension not limited Respiratory normal respiratory effort Auscultation: lungs clear to auscultation bilaterally Cardiovascular Rate/Rhythm: regular rate and regular rhythm Heart Sounds: no murmur Vessels: no carotid bruit Extremities: no edema Testing Laboratory Results 04/03/19 14:35 04/03/19 14:35 04/03/19 04/03/19 04/03/19 14:35 14:35 14:35 PT 10.9 INR 1.1 APTT 25.7 Hemoglobin A1c 6.0 H Blood Type B Positive Antibody Screen NEGATIVE Electrocardiogram Date: 04/03/19 Sinus rhythm with 1st degree AV block. Inferior infarct, age undetermined. No change compared to 10/19/17 EKG. Chest X-Ray Date: 04/03/19 IMPRESSION: Mild hyperinflation without acute process. Echocardiogram Date: 10/18/17 EF: 60-65% Left ventricular systolic function is normal. The basal septum is thickened and angulated consistent with sigmoid septum. Grade I diastolic dysfunction, (abnormal relaxation pattern). There is mild tricuspid regurgitation. The estimated systolic PAP is 39mmHg.
--- NOTE | 2019-04-03 15:14 | XRay Report ---
XR chest Pre-admission PA/Lat HISTORY: 78 years-old Male pat preoperative exam. No acute chest complaints COMPARISON: Chest radiograph 09/30/2017 TECHNIQUE: PA and lateral views of the chest FINDINGS: Cardiomediastinal and hilar silhouettes are within normal limits. Lungs are mildly hyperinflated. No pneumothorax, pleural effusion, focal airspace consolidation or overt pulmonary edema. Degenerative c hanges of the shoulders and spine. IMPRESSION: Mild hyperinflation without acute process. The above report was generated using voice recognition software. It may contain grammatical, syntax o r spelling errors. Electronically signed by: Reji Rivera M.D. 04/03/2019 3:13 PM
[2019-04-03 16:02] LABS: Basophils # (auto) 0.01 K/uL (0-0.2); Basophils % (auto) 0.2 %; Eosinophils # (auto) 0.08 K/uL (0-0.5); Eosinophils % (auto) 1.4 %; Hematocrit (blood only) 41.7 % (42-52); Hemoglobin 15.3 g/dL (14.0-18.0); Immature Granulocytes # (auto) 0.01 K/uL (0.00-0.02); Immature Granulocytes % (auto) 0.2 %; Lymphocytes % (auto) 32.4 %; Mean Corpuscular Hgb Conc 36.7 g/dL (32-36); Mean Corpuscular Volume 89.7 fL (80-100); Mean Platelet Volume 11.6 fL (7.4-10.4); Monocytes # (auto) 0.44 K/uL (0.11-0.59); Monocytes % (auto) 7.9 %; Neutrophils # (auto) 3.22 K/uL (1.4-6.5); Neutrophils % (auto) 57.9 %; Platelet Count 156 K/uL (130-400); RDW Coefficient of Variation 12.2 % (11.5-14.5); RDW Standard Deviation 39.8 fL (36.4-46.3); Red Blood Count 4.65 M/uL (4.7-6.1); White Blood Count 5.56 K/uL (4.8-10.8)
[2019-04-03 16:10] LABS: Albumin Level 3.8 gm/dl (3.4-5.0); Blood Urea Nitrogen 11 mg/dl (7-18); C Reactive Protein < 0.29 mg/dl (0-0.29); Calcium 9.4 mg/dl (8.5-10.1); Carbon Dioxide 28 mmol/L (21-32); Chloride 107 mmol/L (98-107); Creatinine Clr Calc Pharmacy 57.9 ml/min; Est GFR (African American) 73.8; Est GFR (Non-African American) 63.7; Glucose 93 mg/dl (70-99); Potassium 4.1 mmol/L (3.5-5.1); Sodium 143 mmol/L (136-145)
[2019-04-03 16:12] LABS: INR 1.1 (0.9-1.1); Partial Thromboplastin Ratio 0.9; Partial Thromboplastin Time 25.7 Seconds (21.0-31.0); Prothrombin Time 10.9 Seconds (9.0-12.0)
[2019-04-04 08:25] LABS: Estimated Average Glucose 126 mg/dl
--- NOTE | 2019-04-15 15:14 | History and Physical Report ---
DATE OF ADMISSION: 04/22/2019 CHIEF COMPLAINT: Persistent right hip pain. HISTORY OF PRESENT ILLNESS: The patient is a 78-year-old gentleman who is now about a year and half out from a left hip replacement who presents for surgical treatment of his right hip. He has developed increased pain and discomfort in his right hip which has gradually gotten worse over the past several years and significantly worse over the past year. He describes groin pain, thigh pain. It radiates down to his knee. The more he walks, the more it hurts. He limps pretty much all day long and more as the day goes on. He has difficulty putting his shoes and socks on. He has had various different medicines, trying to manage this without relief. He has become less active as a result and he would like to have his hip fixed. He is very happy with his left hip replacement. PAST MEDICAL HISTORY: 1. Diabetes x3 years with an A1c of 6.0. 2. Hypertension. 3. Gastroesophageal reflux disease. PAST SURGICAL HISTORY: Previous surgeries include: 1. Left hip replacement done on 10/18/2017. 2. Knee surgery. ALLERGIES: VIOXX AND PENICILLIN, WHICH CAUSE A RASH. No respiratory problems. CURRENT MEDICINES: Include: 1. Metformin 750 twice a day. 2. Atenolol 50 mg. 3. Lisinopril once a day. 4. Atorvastatin 20 mg. 5. Ranitidine 300 mg twice a day. 6. Amlodipine 10 mg a day. 7. Blair Aspirin 81 mg a day. 7. Centrum Silver. SOCIAL HISTORY: A 78-year-old gentleman. He is . Lives in [place]. Does not smoke. FAMILY HISTORY: Noncontributory. REVIEW OF SYSTEMS: Significant for diabetes. Denies any chest pain or shortness of breath. No history of DVT or PE. No known bleeding problems. PHYSICAL EXAMINATION GENERAL: Shows a pleasant elderly male. He is a little bit hard of hearing. He looks to be in reasonably good health. HEENT: Benign. NECK: Supple. No lymphadenopathy. LUNGS: Clear to auscultation. HEART: Has a regular rate and rhythm. ABDOMEN: Soft, nontender, nondistended. EXTREMITIES: Grossly neurovascularly intact except as follows: Examination of the right hip and leg reveals the patient walks with a slightly antalgic gait. He is about 0.5 cm short on the right side compared to the left. He does have pain with hip motion. His hip is quite stiff with internal rotation to neutral, external rotation at 30 degrees. Negative straight leg raise. He is neurologically intact. X-RAYS: X-rays of the right hip were reviewed. It shows right hip arthritis. He has got complete loss of his joint space. He has got osteophytes around the acetabulum. He has got Cam impingement. Slight cystic change in the femoral head and acetabulum. ASSESSMENT: A 78-year-old gentleman, a year and half out from a left hip replacement, doing well with advanced right hip degenerative joint disease. It has become more debilitating and unresponsive to conservative treatment affecting his quality of life. He would like to have his right hip replaced. PLAN: We will take him to the operating room and do right total hip replacement. The risks and benefits of this procedure were explained to the patient include but not limited to DVT, PE, , infection, neurological injury, vascular injury, bleeding problem, pain, limited range of motion, stiffness, failure to relieve his symptoms, incomplete relief of symptoms, need for further surgery in future, fracture, leg length inequality, nerve palsy, dislocation, etc. The patient understands and desires to proceed. Informed consent was obtained. We did talk to him about holding his metformin and lisinopril the morning of surgery. He will take his atenolol. He is planning to be discharged to home using [facility] home health program.
[2019-04-22] MEDS ORDERED: LR 60ML/HR IV SCH (06:00)
[2019-04-22] MEDS ORDERED: FAMOTIDINE 20 MG TAB PO SCH (06:00)
[2019-04-22] MEDS ORDERED: CEFAZOLIN 2000MG 2,000 MG/15 ML SYR IV SCH (06:00)
[2019-04-22] MEDS ORDERED: METOCLOPRAMIDE HCL 10 MG TABLET PO SCH (06:00)
[2019-04-22] MEDS ORDERED: TRANEXAMIC ACID 1,000 MG **IV Pre-op IV SCH (06:00)
[2019-04-22] MEDS ORDERED: LR 500ML BOLUS, THEN 15ML/HR IV SCH (06:00)
[2019-04-22] MEDS ORDERED: ACETAMINOPHEN 500 MG TAB PO SCH (06:00)
[2019-04-22] MEDS ORDERED: GABAPENTIN 300 MG PO SCH (06:00)
[2019-04-22] MEDS ORDERED: BUPIVACAINE 0.5 % 5 MG/1 ML PF 10ML VIAL ONE (06:31)
[2019-04-22] MEDS ORDERED: MIDAZOLAM HCL 1 MG/ML 2ML VIAL ONE (06:47)
[2019-04-22] MEDS ORDERED: fentaNYL citrate 100 MCG/2 ML VIAL ONE (06:47)
[2019-04-22] MEDS ORDERED: PROPOFOL IV EMULSION 10 MG/ML 20 ML VIAL IV ONE (06:47)
[2019-04-22] MEDS ORDERED: LIDOCAINE HCL 2% 2 ML VIAL/AMP(20MG/ML) INFIL ONE (06:47)
--- NOTE | 2019-04-22 06:55 | History & Physical Bridge Note ---
Date of Service April 22, 2019 History & Physical Bridge Note I have examined the patient, reviewed the History & Physical and in the interval since the performance of the History & Physical I have noted the following changes of clinical significance: no changes noted
[2019-04-22] MEDS ORDERED: BUPIVACAINE/EPINEPHRINE 0.5% MPF 1:200,000 30 ML VIAL ONE (06:56)
[2019-04-22] MEDS ORDERED: MoRPHine SULFATE PF 1 MG/ML 10 ML AMP/VIAL ONE (06:56)
[2019-04-22] MEDS ORDERED: BACITRACIN INJ 50,000 UNIT VIAL ONE (06:56)
[2019-04-22] MEDS ORDERED: ePHEDrine sulfate 50 MG/ML AMP IV PRN (07:17)
[2019-04-22] MEDS ORDERED: LACTATED RINGER'S 500 ML IV PRN (07:17)
[2019-04-22] MEDS ORDERED: ONDANSETRON INJ 2 MG/ML 2 ML VIAL IV PRN ×2 (07:17→09:51)
[2019-04-22] MEDS ORDERED: NALOXONE HCL 0.4 MG/1 ML VIAL/CARP IV PRN ×2 (07:17→09:51)
[2019-04-22] MEDS ORDERED: NALBUPHINE HCL INJ 10 MG/ML AMP IV PRN (07:17)
[2019-04-22] MEDS ORDERED: MEPERIDINE HCL 25 MG/ML CARP IV PRN (07:17)
[2019-04-22] MEDS ORDERED: NALOXONE HCL 1 MG in SODIUM CHLORIDE 0.9% 1000ML 1,000 ML IV PRN (07:17)
[2019-04-22] MEDS ORDERED: KETOROLAC 30 MG/ML VIAL IV PRN (07:17)
[2019-04-22] MEDS ORDERED: DiphenhydrAMINE HCL 50 MG/ML VIAL IV PRN (07:17)
[2019-04-22] MEDS ORDERED: NALOXONE HCL 0.08 MG in SYRINGE 1.8 ML IV PRN (07:17)
[2019-04-22] MEDS ORDERED: MoRPHine SULFATE PF 1 MG/ML 10 ML AMP/VIAL INT SPINAL ONE (07:17)
[2019-04-22] MEDS ORDERED: DC INTRASPINAL MORPHINE SCH (07:30)
[2019-04-22] MEDS ORDERED: NO NARCOTICS OR SEDATIVES SCH (07:30)
[2019-04-22] MEDS ORDERED: SODIUM CHLORIDE 0.9% 1000ML 1,000 ML IV SCH (07:30)
--- NOTE | 2019-04-22 08:40 | Post Operative Brief Note ---
Immediate Post Op Note v1 Date of Surgery April 22, 2019 Pre & Post Diagnosis Operation Date: 04/22/19 07:15 Pre-Op Diagnosis: RIGHT HIP DEGENERATIVE JOINT DISEASE Post-Op Diagnosis: RIGHT HIP DEGENERATIVE JOINT DISEASE Procedure Operation Date: 04/22/19 07:15 Actual Procedures p Right Total Hip Replacement(Right) - Syd Elizabeth MD Surgeon Syd Elizabeth MD Rn Critical Care Trish, PAC Estimated Blood Loss 300 Findings Consistent with Post-Op Diagnosis Fluids 1100 cc Specimens Right Femoral Head Anesthesia Type Spinal MAC Complications none Disposition Accompanied Patient To Recovery: Yes Disposition: Recovery Room
--- NOTE | 2019-04-22 09:04 | XRay Report ---
XR hip 1V RT w pelvis CLINICAL HISTORY: Postoperative evaluation. COMPARISON: Pelvis and hip radiographs February 06, 2019. FINDINGS: Alignment of the right hip arthroplasty is anatomic. There is no periprosthetic fracture o r unexpected radiopaque foreign body. There are acetabular screws. Left hip arthroplasty is noted. IMPRESSION: Expected findings following total right hip arthroplasty. Electronically signed by: Rasta Patiño M.D. 04/22/2019 9:03 AM
--- NOTE | 2019-04-22 09:12 | Anesthesiology Progress Note ---
Date of Service April 22, 2019 Anesthesia Post Procedure Vital Signs Vital Signs: Temp Pulse Resp BP Pulse Ox 04/22/19 09:10 74 17 105/58 L 97 04/22/19 09:00 60 17 115/63 95 04/22/19 08:50 72 18 101/59 L 94 04/22/19 08:42 36.3 C L 81 20 100/59 L 94 04/22/19 05:45 36.8 C 74 20 155/87 H 96 Pain Intensity Right Hip: Pain Intensity: 6 Transfer of Care Handoff Completed per policy Notes Mental Status: alert / awake / arousable Patient Amnestic to Procedure: Yes Nausea / Vomiting: adequately controlled Pain: adequately controlled Airway Patency, RR, SpO2: stable & adequate BP & HR: stable & adequate Hydration State: stable & adequate Neuraxial Anesthesia: was administered and sensory block is resolving Anesthetic Complications: no major complications apparent
[2019-04-22] MEDS ORDERED: GLUCOSE 40% GEL 15 GM TUBE PO PRN (09:51)
[2019-04-22] MEDS ORDERED: HYDROmorphone INJ 0.5 MG/0.5 ML SYR IV PRN (09:51)
[2019-04-22] MEDS ORDERED: GLUCOSE 10 TABS/TUBE PO PRN (09:51)
[2019-04-22] MEDS ORDERED: METOCLOPRAMIDE HCL INJ 5 MG/ML 2 ML VIAL IV PRN (09:51)
[2019-04-22] MEDS ORDERED: ALUMINUM/MAGNESIUM SUSP 30 ML UDC PO PRN (09:51)
[2019-04-22] MEDS ORDERED: MAGNESIUM HYDROXIDE SUSP 30 ML UDC PO PRN (09:51)
[2019-04-22] MEDS ORDERED: CARBOHYDRATES FOR HYPOGLYCEMIA PO PRN (09:51)
[2019-04-22] MEDS ORDERED: DEXTROSE 50% 50 ML SYRINGE IV PRN (09:51)
[2019-04-22] MEDS ORDERED: TRAMADOL HCL 50 MG TABLET PO PRN (09:51)
[2019-04-22] MEDS ORDERED: NON-FORMULARY MEDICATION (Multivit-Min-Fa-Lycopen-Lutein [Centrum Silver] 1 TAB) PO SCH (09:51)
[2019-04-22] MEDS ORDERED: GLUCAGON FOR INJ 1 MG VIAL SQ PRN (09:51)
[2019-04-22] MEDS ORDERED: TAMSULOSIN HCL 0.4 MG CAP PO PRN (09:51)
[2019-04-22] MEDS ORDERED: BISACODYL 10 MG SUPP PR PRN (09:51)
[2019-04-22] MEDS ORDERED: PHARMACY GLYCEMIC MGMT CONSULT STA (09:51)
[2019-04-22] MEDS ORDERED: PHARMACY GLYCEMIC MGMT CONSULT PRN (10:26)
--- NOTE | 2019-04-22 10:43 | Operative Report ---
DATE OF OPERATION: 04/22/2019 SURGEON: Syd Elizabeth MD OCEAN EXPORT AGENT: GUSTAVO Lawson PREOPERATIVE DIAGNOSIS: Right hip degenerative joint disease. POSTOPERATIVE DIAGNOSIS: Right hip degenerative joint disease. PROCEDURE PERFORMED: Right uncemented ceramic on highly cross-linked polyethylene total hip arthroplasty. COMPLICATIONS: None. ESTIMATED BLOOD LOSS: 300 mL FLUID REPLACEMENT: 1100 mL crystalloid fluid replacement. ANESTHESIA: Spinal. DRAINS: None. SPECIMENS: Right femoral head sent for pathology. OPERATIVE INDICATIONS: The patient is a 78-year-old gentleman who has had a long history of bilateral hip pain and discomfort. He has been through extensive conservative treatment in the past. He underwent a left total hip replacement about a year and half ago and has done remarkably well with this. He has now become more debilitated by his right hip pain. X-rays show advanced hip DJD. He elected to have operative treatment. OPERATIVE FINDINGS: The operative findings were advanced right hip DJD. Extensive grade 4 [id number] disease of the femoral head and acetabulum. A moderate size medial osteophyte. Moderate size joint effusion. OPERATIVE IMPLANTS: Operative implants consisted of: 1. A Biomet G7 size 56-mm acetabular shell. 2. A 6.5 cancellous acetabular screws, one 35 mm length and one 30 mm length. 3. An apex hole eliminator. 4. A highly cross-linked polyethylene liner with a 56-mm outer diameter and 36-mm inner diameter. 5. DePuy Corail size 14 KLA femoral stem. 6. A +5/36 mm ceramic articular ball. OPERATIVE PROCEDURE: The patient taken to the operating room, identified, and placed on the operating table in supine position. All contact areas were appropriately padded. IV antibiotics were provided by anesthesia team. A spinal anesthetic had been implemented in the holding area. Duke catheter was placed in sterile fashion. The patient was then placed in the left lateral decubitus position. An axillary roll was placed. Stulberg hip positioner was used for positioning. Right hip and leg were then prepped and draped in usual sterile fashion. A posterolateral approach to the right hip was then performed through a curvilinear incision centered over the greater trochanter. Sharp dissection was carried through subcutaneous tissue down to the level of the IT band and gluteal fascia. The IT band and gluteal fascia were incised longitudinally in line with skin incision. The underlying greater trochanteric bursa was excised. The piriformis and external rotators were tagged and taken off the posterior aspect of the hip joint capsule. Great care was taken throughout the procedure to protect the sciatic nerve at all times. Posterior capsulotomy was then performed leaving a large flap for later repair. Hip was gently rotated and dislocated. The femoral neck cut was made about the 10 mm above the lesser trochanter. Femoral head was removed and sent for pathology. Attention was then drawn to the acetabulum. The acetabular labrum was excised. The pulvinar fat was excised. Sequential reaming of the acetabulum was then performed beginning with a size 49 progressing up to 55. A 56-mm Biomet G7 acetabular shell was then placed in about 40 degrees of lateral opening and 20 degrees of anteversion. It was fixed with two 6.5 cancellous acetabular screws. A trial liner was placed. Attention was then drawn to the femur. The proximal was entered with a cookie cutter followed by canal finder. I broached beginning with a size 8 and progressing up to 14. We got excellent fit at 14. Calcar reamer was used to smoothen off the calcar. We then trialed the hip and the +5 articular ball recreated soft tissue tension and leg lengths appropriately. The hip was fully stable in full extension and external rotation and flexion to 90 degrees, internal rotation to over [address] I elected to place these implants. All trial implants were removed. An apex hole eliminator was placed. Highly cross-linked polyethylene liner was placed. A DePuy Corail size 14 KLA femoral stem was impacted in position. A +5/36 mm ceramic articular ball was placed. Hip was located once again and found to be stable. Attention was then drawn toward closing. The wound was irrigated with copious amounts of pulsatile lavage solution. I did inject locally with 60 mL of 0.5% Marcaine with epinephrine. The posterior capsule and external rotators were repaired through drill holes in the posterior trochanter with #2 Ti-Cron suture. The IT band and gluteal fascia were then closed with #1 PDS suture in running fashion. Subcutaneous tissue was then closed in 2 layers, the deep layer with #1 Vicryl suture and subcutaneous tissue with 2-0 Dexon suture in buried interrupted fashion. The skin was closed with skin jose luis. Leg was then cleaned and dried and a sterile dressing of Xeroform, 4 x 4, sterile cast padding, and Bonifacio bandage were applied. The patient was then transferred to the recovery room in stable condition. The patient tolerated the procedure well with no complications. All needle and sponge counts were correct at the end of the operation. I attest to the content of the Intraoperative Record and any orders documented therein. Any exception s are noted below.
[2019-04-22] MEDS: DOCUSATE SODIUM 100 MG CAP PO SCH ×2 (10:47→21:07)
[2019-04-22] MEDS: ATORVASTATIN 20 MG TAB PO SCH (10:47)
[2019-04-22] MEDS: MULTIVITAMIN TAB PO SCH (10:50)
[2019-04-22] MEDS: METOPROLOL SUCC 25MG EXT REL TAB PO SCH (10:50)
[2019-04-22] MEDS: LISINOPRIL 40 MG TAB PO SCH (10:50)
[2019-04-22] MEDS: ASPIRIN 81 MG ECTAB PO SCH ×2 (10:50→21:07)
[2019-04-22] MEDS ORDERED: LANTUS PER UNIT CHARGE SQ ONE ×2 (11:00→21:00)
[2019-04-22] MEDS: SODIUM CHLORIDE 0.9% 1000ML 1,000 ML IV SCH ×2 (11:21→21:05)
[2019-04-22] MEDS: KETOROLAC TROMETHAMINE 15 MG/ML VIAL IV SCH ×3 (12:34→23:11)
[2019-04-22] MEDS: INSULIN ASPART 100 UNITS/ML 3 ML PEN SC SCH ×3 (13:12→21:35)
[2019-04-22] MEDS: ACETAMINOPHEN 500 MG TAB PO SCH ×2 (13:13→21:09)
[2019-04-22] MEDS: CEFAZOLIN 2000MG 2,000 MG/15 ML SYR IV SCH ×2 (14:33→23:11)
[2019-04-22] MEDS ORDERED: TRANEXAMIC ACID 1,000 MG in 0.9 % SODIUM CHLORIDE 100 ML IV SCH (14:41)
--- NOTE | 2019-04-22 15:13 | Pharmacy Report ---
Pharmacy Glycemic Short Note 2 - Date of Service April 22, 2019 - Glycemic Short BSG Results (Last 24 hours): 04/22/19 04/22/19 04/22/19 05:34 08:55 12:13 POC Glucose 137 H 173 H 167 H OUTPATIENT ANTIDIABETIC REGIMEN: * Metformin 1500mg PO qAM * HbA1c: 6.0% (04/03/19) ASSESSMENT: * Mr Frausto is a 78yo diabetic male POD 0 s/p R total hip with Dr Elizabeth this morning. * BSGs today: 173, 167 * It does not appear as though patient received any pre-op steroids. PLAN FOR INPATIENT GLYCEMIC CONTROL: * Hold outpatient oral diabetes medications * Will consider resuming Metformin tomorrow * Basal insulin * Lantus 15 units SQ x1 one dose post-op * Will give a supplemental dose this evening if BSGs > 180mg/dL * Bolus insulin * NovoLog per scale ACHS or Q6hrs while NPO * Goal Range: Low 110 mg/dL - High 140 mg/dL * Correction Factor: 30 mg/dL/unit * Nutritional / Prandial insulin: 1 unit for every 10 gm CHO consumed PLAN FOR DISCHARGE: * Patient's A1c (6.0%) indicates excellent glycemic control. * Resume patient's home regimen on discharge, unless patient reports having episodes of hypoglycemia as an outpatient.
[2019-04-22] MEDS: ASCORBIC ACID 500 MG TAB PO SCH (16:21)
[2019-04-22] MEDS: FERROUS GLUCONATE 324 MG TAB PO SCH (16:21)
[2019-04-22] MEDS: SENNA 8.6 MG TAB PO SCH (21:08)
[2019-04-22] MEDS: AMLODIPINE BESYLATE 5 MG TAB PO SCH (21:08)
--- NOTE | 2019-04-22 21:10 | Progress Note ---
DATE: 04/22/2019 SUBJECTIVE: A 78-year-old gentleman postop from a right hip replacement. He is doing well. Pain is controlled. No chest pain or shortness of breath. Not feeling dizzy or lightheaded. OBJECTIVE: VITAL SIGNS: Temperature 36.7. Vital signs stable. PHYSICAL EXAMINATION: GENERAL: Reveals a pleasant elderly male. He is sitting up in bed and was doing some exercises with the nurse this evening. LUNGS: Clear to auscultation. HEART: Regular rate and rhythm. ABDOMEN: Soft, nontender, nondistended. EXTREMITIES: Grossly neurovascularly intact except as follows. Examination of the right lower extremity reveals the leg lengths to be equal. Hip is located. Dressing is clean, dry, and intact. He can dorsiflex and plantarflex his foot appropriately. He is neurologically intact. X-RAYS: X-rays of the right hip from recovery room were reviewed. It shows a right uncemented total hip replacement. Components looked to be in good position. No signs of problems. ASSESSMENT: A 78-year-old gentleman postop from a right hip replacement, doing well. Pain is controlled. Hip is located. He is neurologically intact. PLAN: 1. DVT prophylaxis including thigh-high TEDs, SCDs, and aspirin twice a day. 2. PT/OT. Weightbear as tolerated. Right total hip protocol. 3. Pain control, doing well with current pain regimen. 4. IV antibiotics x24 hours. 5. Disposition: He is going to be discharged home with some home health once adequately recovered.
[2019-04-23] MEDS: ACETAMINOPHEN 500 MG TAB PO SCH ×3 (06:02→21:29)
[2019-04-23] MEDS: KETOROLAC TROMETHAMINE 15 MG/ML VIAL IV SCH ×4 (06:03→23:53)
[2019-04-23] MEDS: SODIUM CHLORIDE 0.9% 1000ML 1,000 ML IV SCH (06:04)
[2019-04-23 06:42] LABS: Basophils # (auto) 0.01 K/uL (0-0.2); Basophils % (auto) 0.2 %; Eosinophils # (auto) 0.08 K/uL (0-0.5); Eosinophils % (auto) 1.4 %; Hematocrit (blood only) 35.2 % (42-52); Hemoglobin 12.6 g/dL (14.0-18.0); Immature Granulocytes # (auto) 0.01 K/uL (0.00-0.02); Immature Granulocytes % (auto) 0.2 %; Lymphocytes # (auto) 1.02 K/uL (1.2-3.4); Lymphocytes % (auto) 17.6 %; Mean Corpuscular Hgb Conc 35.8 g/dL (32-36); Mean Platelet Volume 11.3 fL (7.4-10.4); Monocytes # (auto) 0.72 K/uL (0.11-0.59); Monocytes % (auto) 12.5 %; Neutrophils # (auto) 3.94 K/uL (1.4-6.5); Neutrophils % (auto) 68.1 %; Platelet Count 113 K/uL (130-400); RDW Coefficient of Variation 11.9 % (11.5-14.5); RDW Standard Deviation 39.3 fL (36.4-46.3); Red Blood Count 3.87 M/uL (4.7-6.1); White Blood Count 5.78 K/uL (4.8-10.8)
--- NOTE | 2019-04-23 07:12 | Orthopedic Progress Note ---
Date of Service April 23, 2019 Assessment & Plan (1) Status post total replacement of hip: He's doing well. C/o some itching and can take some benadryl fro that. He was seen and examined by Dr. Elizabeth. Pain is controlled. Continue dvt prophylaxis. PT/OT: wbat, total hip precautions. discharge planning. Subjective POD #1 from Right GER. Not having pain. But is c/o itching. Physical Exam Physical Exam: Alert and oriented. NAD. Hip is located. NVI. able to DF/PF Results & Data Vital Signs (Past 12 Hours) Vital Signs Temp Pulse Resp BP Pulse Ox Pulse Ox 04/23/19 03:04 36.7 C 76 16 141/75 H 96 04/23/19 01:31 18 93 04/23/19 00:20 16 94 04/22/19 23:30 36.5 C 77 16 147/75 H 93 04/22/19 23:15 16 95 95 04/22/19 22:30 16 94 04/22/19 21:29 15 92 04/22/19 20:30 13 93 04/22/19 19:30 14 94
[2019-04-23 07:17] LABS: BUN Creatinine Ratio 11.6 (10-20); Calcium 7.8 mg/dl (8.5-10.1); Est GFR (African American) 81.8; Est GFR (Non-African American) 70.6
--- NOTE | 2019-04-23 08:08 | Anesthesiology Progress Note ---
Date of Service April 23, 2019 Anesthesia Post Procedure Vital Signs Vital Signs: Temp Pulse Pulse Resp BP Pulse Ox Pulse Ox 04/23/19 07:16 36.7 C 68 18 150/70 H 96 04/23/19 03:04 36.7 C 76 16 141/75 H 96 04/23/19 01:31 18 93 04/23/19 00:20 16 94 04/22/19 23:30 36.5 C 77 16 147/75 H 93 04/22/19 23:15 16 95 95 04/22/19 22:30 16 94 04/22/19 21:29 15 92 04/22/19 20:30 13 93 04/22/19 19:30 14 94 04/22/19 19:09 36.7 C 74 18 121/74 93 04/22/19 18:30 16 93 04/22/19 17:30 18 95 04/22/19 17:09 36.5 C 67 17 139/87 95 04/22/19 16:30 15 93 04/22/19 15:30 16 92 04/22/19 14:30 14 90 04/22/19 13:30 16 91 04/22/19 12:30 16 93 04/22/19 12:20 69 18 112/69 93 04/22/19 11:24 56 L 13 130/79 92 04/22/19 11:23 13 94 04/22/19 10:25 76 18 109/69 91 04/22/19 10:24 15 92 04/22/19 09:56 69 16 123/76 95 04/22/19 09:30 36.5 C 61 16 108/68 96 96 04/22/19 09:20 36.2 C L 54 L 20 111/61 95 04/22/19 09:10 74 17 105/58 L 97 04/22/19 09:00 60 17 115/63 95 04/22/19 08:50 72 18 101/59 L 94 04/22/19 08:42 36.3 C L 81 20 100/59 L 94 Pain Intensity Right Hip: Pain Intensity: 6 Notes Mental Status: alert / awake / arousable and participated in evaluation Patient Amnestic to Procedure: Yes Nausea / Vomiting: adequately controlled Pain: adequately controlled Airway Patency, RR, SpO2: stable & adequate BP & HR: stable & adequate Hydration State: stable & adequate Neuraxial Anesthesia: was administered and sensory block resolved Anesthetic Complications: no major complications apparent and Pt Satisfied with anesthetic care
[2019-04-23] MEDS: INSULIN ASPART 100 UNITS/ML 3 ML PEN SC SCH ×4 (08:46→21:33)
[2019-04-23] MEDS: ATORVASTATIN 20 MG TAB PO SCH (08:48)
[2019-04-23] MEDS: METOPROLOL SUCC 25MG EXT REL TAB PO SCH (08:48)
[2019-04-23] MEDS: DOCUSATE SODIUM 100 MG CAP PO SCH ×2 (08:48→21:28)
[2019-04-23] MEDS: ASPIRIN 81 MG ECTAB PO SCH ×2 (08:48→21:28)
[2019-04-23] MEDS: FERROUS GLUCONATE 324 MG TAB PO SCH ×2 (08:49→17:22)
[2019-04-23] MEDS: LISINOPRIL 40 MG TAB PO SCH (08:49)
[2019-04-23] MEDS: MULTIVITAMIN TAB PO SCH (08:49)
[2019-04-23] MEDS: ASCORBIC ACID 500 MG TAB PO SCH ×2 (08:49→17:22)
[2019-04-23] MEDS: METFORMIN HCL ER 500 MG TABCR PO SCH (09:04)
--- NOTE | 2019-04-23 16:16 | Pharmacy Report ---
Pharmacy Glycemic Short Note 2 - Date of Service April 23, 2019 - Glycemic Short BSG Results (Last 24 hours): 04/22/19 04/22/19 04/23/19 17:36 21:25 06:24 Glucose 120 H POC Glucose 122 H 107 H 04/23/19 04/23/19 08:06 12:17 Glucose POC Glucose 116 H 108 H OUTPATIENT ANTIDIABETIC REGIMEN: * Metformin 1500mg PO qAM * HbA1c: 6.0% (04/03/19) ASSESSMENT: 04/23/19: * Post-op BSGs have been very well-controlled. * Patient's metformin was resumed this morning. Novolog parameters changed to provide only correction (no prandial coverage). * I do not anticipate that patient will require any additional basal insulin. Can d/c Novolog tomorrow if BSGs remain stable. 04/22/19 * Mr Frausto is a 78yo diabetic male POD 0 s/p R total hip with Dr Elizabeth this morning. * BSGs today: 173, 167 * It does not appear as though patient received any pre-op steroids. PLAN FOR INPATIENT GLYCEMIC CONTROL: * Metformin ER 1500mg PO qAM * Basal insulin * no further basal insulin at this time * Bolus insulin * NovoLog per scale ACHS or Q6hrs while NPO * Goal Range: Low 110 mg/dL - High 140 mg/dL * Correction Factor: 30 mg/dL/unit * Nutritional / Prandial insulin: no further prandial insulin at this time PLAN FOR DISCHARGE: * Patient's A1c (6.0%) indicates excellent glycemic control. * Resume patient's home regimen on discharge, unless patient reports having episodes of hypoglycemia as an outpatient.
[2019-04-23] MEDS: AMLODIPINE BESYLATE 5 MG TAB PO SCH (21:28)
[2019-04-23] MEDS: SENNA 8.6 MG TAB PO SCH (21:29)
[2019-04-24] MEDS: KETOROLAC TROMETHAMINE 15 MG/ML VIAL IV SCH (06:01)
[2019-04-24] MEDS: ACETAMINOPHEN 500 MG TAB PO SCH (06:06)
--- NOTE | 2019-04-24 08:25 | Progress Note ---
DATE: 04/24/2019 SUBJECTIVE: A 78-year-old gentleman postop day 2 from right hip replacement. He is doing well. Pain is controlled. Feels his therapy is going well. OBJECTIVE: VITAL SIGNS: Temperature 36.6. Vital signs stable. GENERAL: Physical examination shows a pleasant, middle-aged male. He is sitting up in bed and looks comfortable. EXTREMITIES: Examination of the right hip reveals the leg lengths to be equal. Dressing is clean, dry and intact. Thigh is soft and supple. He is neurologically intact. ASSESSMENT: A 78-year-old gentleman postop day 2 from right hip replacement, doing well. Pain is controlled. Hip is located. He is neurologically intact. PLAN: 1. DVT prophylaxis including thigh-high TEDs, SCDs, and aspirin twice a day. 2. PT/OT. Weight bear as tolerated. Right total hip protocol. 3. Pain control. Doing well with current pain regimen. 4. Disposition: Plan to discharge to home with some home health later today.
[2019-04-24] MEDS: FERROUS GLUCONATE 324 MG TAB PO SCH (08:34)
[2019-04-24] MEDS: DOCUSATE SODIUM 100 MG CAP PO SCH (08:34)
[2019-04-24] MEDS: MULTIVITAMIN TAB PO SCH (08:34)
[2019-04-24] MEDS: METFORMIN HCL ER 500 MG TABCR PO SCH (08:35)
[2019-04-24] MEDS: ATORVASTATIN 20 MG TAB PO SCH (08:35)
[2019-04-24] MEDS: ASPIRIN 81 MG ECTAB PO SCH (08:36)
[2019-04-24] MEDS: ASCORBIC ACID 500 MG TAB PO SCH (08:36)
[2019-04-24] MEDS: METOPROLOL SUCC 25MG EXT REL TAB PO SCH (08:38)
[2019-04-24] MEDS: LISINOPRIL 40 MG TAB PO SCH (08:38)
[2019-04-24] MEDS: INSULIN ASPART 100 UNITS/ML 3 ML PEN SC SCH (08:40)
--- NOTE | 2019-04-28 15:54 | Discharge Summary ---
ADMITTING PHYSICIAN AND SURGEON: Syd Elizabeth MD ADMITTING DIAGNOSIS: Right hip degenerative joint disease. SURGERY PERFORMED: Right total hip arthroplasty. SECONDARY DIAGNOSES: Diabetes, hypertension, gastroesophageal reflux disease. CONSULTS: None obtained. HISTORY AND PHYSICAL EXAMINATION: Well documented in the patient's chart. HOSPITAL COURSE: The patient was admitted on 04/22/2019, underwent total hip arthroplasty, tolerated the procedure well. There were no complications. He was transferred to the PACU postoperatively and later to the orthopedic floor for further care. He was given Ancef for antibiotic prophylaxis, LAILA stockings, SCDs and aspirin for DVT prophylaxis. Hemoglobin, hematocrit and vital signs were monitored during his hospital stay and remained stable. He did not require any blood transfusions. There were no complications. By postoperative day 2, he was tolerating a diabetic diet. Pain was controlled with oral pain medicine. He was participating in physical therapy. On postop day 2, he was discharged home, set up with home health services. He was given printed discharge instructions as well as new prescriptions for extra-strength Tylenol, aspirin and tramadol. Continue his home medicines. Continue physical therapy, weightbearing as tolerated, LAILA stockings, total hip precautions. Follow up approximately 2 weeks postop or sooner if there are any problems or concerns.
== END 2019-04-24 11:57 | disposition home health service (06) | DRG 470 ==
LOC: ASU 05:09 → 3E 09:40